=== PATIENT | female | born 1965 ===

== ENCOUNTER 2022-07-13 16:00 | Outpatient (CLI) | payer OTHER, SELFPAY ==
[2022-07-13 16:35] LABS: Alanine Aminotransferase 20 U/L (6-35); Aspartate Amino Transferase 19 U/L (14-36)
== END 2022-07-13 16:01 | disposition home or self-care (01) ==
LOC: ANHLAB 16:03
PROVIDERS: PCP Internal Medicine; Visit Provider Podiatrist Foot & Ankle Surgery
DX: B35.1 Tinea unguium (principal)
CPT/HCPCS: 36415; 84450; 84460

== ENCOUNTER 2022-09-28 14:51 | Outpatient (CLI) | payer OTHER, SELFPAY ==
[2022-09-28 15:45] LABS: Alanine Aminotransferase 19 U/L (6-35); Aspartate Amino Transferase 21 U/L (14-36)
== END 2022-09-28 14:52 | disposition home or self-care (01) ==
PROVIDERS: PCP Internal Medicine; Visit Provider Podiatrist Foot & Ankle Surgery
DX: B35.1 Tinea unguium (principal)
CPT/HCPCS: 36415; 84450; 84460

== ENCOUNTER 2022-11-02 11:07 | Outpatient (CLI) | payer OTHER, SELFPAY ==
--- NOTE | ~2022-11-02 | CT_ITS ---
EXAMINATION:CT lung screening DATE: 11/02/2022 11:29 INDICATION: Tobacco use. Current smoker with 35 pack year history. TECHNIQUE: Computed tomography (CT) of the chest was performed without intravenous contrast. Automate d exposure control and iterative reconstruction technique were employed. The dose-length product (DLP ) was 637.60 mGy-cm. COMPARISON: None. FINDINGS: There is a 6 mm nodule in right upper lobe. Calcified bilateral lung nodules are consistent with old granulomatous disease. There is a 6 mm groundglass nodule left lower lobe. There is a 3 mm nodule in left lower lobe. There is a 5 mm nodule in left upper lobe. There is a 3 mm nodule in left upper lobe. No pleural effusion. The heart size is normal. There are coronary artery calcifications. No pericardial effusion. There is severe spondylosis at T8-T9 and mild spondylosis at other levels. IMPRESSION: 1. Lung-RADS category 3: Probably benign. Further evaluation is recommended with noncontrast low-dose chest CT in 6 months. Reviewed, dictated and finalized at location A. [employer] IMPRESSION: 1. Lung-RADS category 3: Probably benign. Further evaluation is recommended wit h noncontrast low-dose chest CT in 6 months.
== END 2022-11-02 11:08 | disposition home or self-care (01) ==
PROVIDERS: PCP Internal Medicine; Visit Provider Nurse Practitioner Family
DX: Z12.2 Encounter for screening for malignant neoplasm of respiratory organs (principal); Z87.891 Personal history of nicotine dependence; R91.8 Other nonspecific abnormal finding of lung field
CPT/HCPCS: 71271